=== PATIENT | male | born 1965 | race Caucasian/White ===

== ENCOUNTER 2017-01-04 15:30 | Emergency (ER) | payer OTHER ==
[~2017-01-04] VITALS: Ht 190.5 cm; Wt 153.8 kg
[2017-01-04] MEDS ORDERED: JARD1TAB (15:44)
[2017-01-04] MEDS ORDERED: GLUC1KIT (15:44)
[2017-01-04] MEDS ORDERED: LISI10TA4 (15:44)
[2017-01-04] MEDS ORDERED: GLIM4TAB (15:44)
[2017-01-04] MEDS ORDERED: VICT18IN (15:44)
[2017-01-04] MEDS ORDERED: METF500T13 (15:44)
[2017-01-04] MEDS ORDERED: ASPI81TA18 (15:44)
[2017-01-04] MEDS ORDERED: LIDOCAINE 2% JELLY 30 ML TOP ONE (16:00)
[2017-01-04 16:42] VITALS: BP 141/69
== END 2017-01-04 16:38 | disposition home or self-care (01) ==
LOC: M ED 15:30
DX: N36.8 Other specified disorders of urethra (principal); F17.210 Nicotine dependence, cigarettes, uncomplicated; Z87.442 Personal history of urinary calculi; Z79.82 Long term (current) use of aspirin; Z79.899 Other long term (current) drug therapy; Z79.84 Long term (current) use of oral hypoglycemic drugs

== ENCOUNTER 2018-12-19 10:21 | Day surgery (SDC) | payer OTHER ==
[~2018-12-19] VITALS: Ht 190.5 cm; Wt 145.6 kg
[~2018-12-19 10:21] MED LIST: ASPI81TA52; ECOT81TA5 PO; GLIM4TAB PO; GLUC1KIT; JARD1TAB; LIPI10TA PO; LISI10TA4; METF500T13; NS 1,000 ML IV ONE; SAXE1INJ SC; VICT18IN
[2018-12-19] MEDS ORDERED: LIDOCAINE 2% INJ 100 MG/5 ML SDV (FOR ANES.) As Ordered ONE (11:03)
[2018-12-19] MEDS ORDERED: PROPOFOL 200 MG/20 ML VIAL As Ordered ONE (11:03)
--- NOTE | 2018-12-19 12:44 | ROOR ---
Patient Name: Sandip Hay Procedure Date: 12/19/2018 12:08 PM Date of : 1965 Age: 53 Room: [facility] [place] Gender: Male Note Status: Finalized Procedure: Total Colonoscopy to Cecum + Cold Snare Polypectomy Indications: Screening for colorectal malignant neoplasm Providers: Robb Leiva MD Referring MD: KEVIN BROWN MD Requesting Provider: Medicines: Monitored Anesthesia Care Complications: No immediate complications. Procedure: Pre-Anesthesia Assessment: - The heart rate, respiratory rate, oxygen saturations, blood pressure, adequacy of pulmonary ventilation, and response to care were monitored throughout the procedure. The Colonoscope was introduced through the anus and advanced to the cecum, identified by appendiceal orifice and ileocecal valve. Findings: The perianal and digital rectal examinations were normal. Non-bleeding internal hemorrhoids were found during retroflexion. The hemorrhoids were small and Grade I (internal hemorrhoids that do not prolapse). A small polyp was found at 60 cm proximal to the anus. The polyp was sessile. The polyp was removed with a cold snare. Resection and retrieval were complete. The exam was otherwise without abnormality on direct and retroflexion views. Impression: - Non-bleeding internal hemorrhoids. - One small polyp at 60 cm proximal to the anus, removed with a cold snare. Resected and retrieved. - The examination was otherwise normal on direct and retroflexion views. - The exam was otherwise normal to the cecum. Recommendation: - Patient has a contact number available for emergencies. The signs and symptoms of potential delayed complications were discussed with the patient. Return to normal activities tomorrow. Written discharge instructions were provided to the patient. - High fiber diet. - Discharge patient to home. - Continue present medications. - Await pathology results. - Telephone GI clinic for pathology results in 1 week. - Repeat colonoscopy in 5 years for surveillance based on pathology results. - Return to referring physician. - The findings and recommendations were discussed with the patient's family. - Patient has a contact number available for emergencies. The signs and symptoms of potential delayed complications were discussed with the patient. Return to normal activities tomorrow. Written discharge instructions were provided to the patient. - Discharge patient to home. - Continue present medications. - Await pathology results. - Telephone GI clinic for pathology results in 1 week. - Repeat colonoscopy in 5 years for surveillance based on pathology results. - Return to referring physician. - The findings and recommendations were discussed with the patient's family. Robb Leiva MD Robb Leiva MD 12/19/2018 12:44:00 PM Electronically signed by Robb Leiva MD Number of Addenda: 0 Note Initiated On: 12/19/2018 12:08 PM Estimated Blood Loss: Estimated blood loss: none.
[2018-12-19 13:00] VITALS: BP 108/68
[2018-12-21] MEDS ORDERED: NAPR-837 PO (00:38)
== END 2018-12-19 13:00 | disposition home or self-care (01) ==
LOC: M OPP 10:21
PROVIDERS: ATTEND Internal Medicine Gastroenterology
DX: Z12.11 Encounter for screening for malignant neoplasm of colon (principal); D12.6 Benign neoplasm of colon, unspecified; K64.0 First degree hemorrhoids; F17.210 Nicotine dependence, cigarettes, uncomplicated; Z79.82 Long term (current) use of aspirin; Z79.84 Long term (current) use of oral hypoglycemic drugs; Z79.899 Other long term (current) drug therapy

== ENCOUNTER 2019-05-13 09:18 | Emergency (ER) | payer OTHER ==
[~2019-05-13] VITALS: Ht 190.5 cm; Wt 155.5 kg
[~2019-05-13 09:18] MED LIST changes: -GLIM4TAB PO; +GLIM4TAB3 PO; +NAPR-837 PO; -NS 1,000 ML IV ONE
[2019-05-13] MEDS ORDERED: VICT18IN2 (09:27)
[2019-05-13] MEDS ORDERED: LANTINJ4 (09:27)
[2019-05-13] MEDS ORDERED: LIDOCAINE W/EPINEPHRINE 1% 20ML VIAL SC ONE (10:30)
[2019-05-13] MEDS ORDERED: BACTRIM 160MG/800MG DS TAB PO ONE (11:00)
[2019-05-13] MEDS ORDERED: BACT800T5 PO (11:07)
[2019-05-13 11:14] VITALS: BP 136/86
== END 2019-05-13 11:18 | disposition home or self-care (01) ==
LOC: M ED 09:18
DX: N49.2 Inflammatory disorders of scrotum (principal); E11.9 Type 2 diabetes mellitus without complications; I10 Essential (primary) hypertension; Z79.82 Long term (current) use of aspirin; Z79.4 Long term (current) use of insulin; Z79.899 Other long term (current) drug therapy

== ENCOUNTER → 2019-10-24 | Outpatient (REF) | payer OTHER ==
[~2019-10-24] MED LIST changes: +BACT800T5 PO; -GLIM4TAB3 PO; +GLIM4TAB5 PO; +LANTINJ4; +VICT18IN2
== END ==
LOC: M SMT 16:38
PROVIDERS: ATTEND Urology
DX: N49.2 Inflammatory disorders of scrotum (principal)